=== PATIENT | female | born 1995 | race African-American/Black ===

== ENCOUNTER 2017-03-10 18:03 | Emergency (ER) | payer OTHER ==
[~2017-03-10] VITALS: Ht 154.9 cm; Wt 49.0 kg
[2017-03-10 18:18] VITALS: BP_SYST 114; BP_DIAS 61; BP_DIAS 72; PULSE 84; PULSE 97; RESP 14; RESP 18; TEMP 98.1; TEMP 99; O2SAT 100
--- NOTE | 2017-03-10 18:23 | PD ---
Physical Exam Date Seen by Provider: March 10, 2017 Time Seen by Provider: 18:22 Narrative 22 yo female here for SOB. history of asthma. Has not used inhalers for this. Some chest pressure. Cough. No fevers, chills or sweats. No urine, BM issues. Vitals sign stable. Patient awaiting bed placement. Data Data Last Documented VS Vital Signs Date Time Temp Pulse Resp B/P Pulse Ox O2 Delivery O2 Flow Rate FiO2 03/10/17 18:18 98.1 84 14 114/61 100 MDM Medical Record Reviewed: Yes Supervised Visit with CHAPO: Mani Hidalgo March 10, 2017 18:23
[2017-03-10] MEDS ORDERED: SODIUM CHLOR 0.9% 1000 ML INJ 1,000 ML IV SCH (18:34)
--- NOTE | 2017-03-10 18:38 | PD ---
HPI Chief Complaint: Respiratory Symptoms Time Seen by Provider: 18:36 Travel History International Travel<30 days: No Contact w/Intl Traveler<30days: No Traveled to known affect area: No History of Present Illness HPI 22-year-old female presents to the emergency department for evaluation of lower abdominal pain and shortness of breath intermittently for 2 weeks. Patient states that her lower abdominal pain is a cramping pain. Denies any aggravating or alleviating factors. Denies any chest pain. Denies any aggravating or relieving factors of her shortness of breath. States she has had nausea with several episodes of nonbloody nonbilious emesis over the last week. States that she feels dehydrated. Denies any lightheadedness, dizziness , diarrhea, constipation, dysuria, hematuria, vaginal discharge, cough or cold symptoms. Denies any recent travel or sick contacts. Denies any prior abdominal surgeries. Unsure of her last menstrual cycle, states she thinks it was 2 months ago. Patient is sexually active. No other complaints. PFSH Past Medical History Respiratory: Yes (ASTHMA) ?: Unknown Social History Alcohol Use: No Tobacco Use: No Substance Use: No Allergies-Medications (Allergen,Severity, Reaction): Coded Allergies: No Known Allergies (Unverified , 03/10/17) Reported Meds & Prescriptions Reported Meds & Active Scripts Active Zofran (Ondansetron HCl) 4 Mg Tab 4 Mg PO Q6HR PRN Review of Systems Except as stated in HPI: all other systems reviewed are Neg Physical Exam Narrative GENERAL: Well-nourished and well-developed pleasant patient in no acute distress who is nontoxic appearing. SKIN: Warm and dry. HEAD: Normocephalic and atraumatic. EYES: No injection, drainage, or hyphema noted. PERRLA. EOMI. ENT: No nasal drainage noted. Oropharynx is clear. NECK: Supple and the trachea is midline. CARDIOVASCULAR: Regular rate and rhythm. RESPIRATORY: Breath sounds are equal bilaterally with no accessory muscle use, wheezing, rhonchi, or crackles. GASTROINTESTINAL: Mild suprapubic tenderness to palpation. Abdomen is soft and nondistended. No rebound tenderness or guarding. GENITOURINARY: Normal external genitalia without lesions or erythema. Vaginal vault with with thick yellow discharge. Cervical os closed. No cervical motion tenderness. Uterus nontender and nonenlarged. Bilateral adnexa nontender without masses. MUSCULOSKELETAL: No obvious deformities, swelling, cyanosis, or ecchymosis is present throughout the upper and lower extremities. Patient has full range of motion without any signs of neurovascular compromise. NEUROLOGICAL: Awake, alert, and oriented. Normal speech and gait. Cranial nerves are grossly intact. Data Data Last Documented VS Vital Signs Date Time Temp Pulse Resp B/P Pulse Ox O2 Delivery O2 Flow Rate FiO2 03/10/17 18:31 16 100 Room Air 03/10/17 18:18 98.1 84 114/61 Orders Complete Blood Count With Diff (03/10/17 18:34) Comprehensive Metabolic Panel (03/10/17 18:34) Gc And Chlamydia Pcr (03/10/17 18:34) Wet Prep Profile (03/10/17 18:34) Urinalysis - C+S If Indicated (03/10/17 18:34) Iv Access Insert/Monitor (03/10/17 18:34) Sodium Chloride 0.9% Flush (Ns Flush) (03/10/17 18:45) Ed Urine Pregnancytest Poc (03/10/17 18:34) Lipase (03/10/17 18:34) Sodium Chlor 0.9% 1000 Ml Inj (Ns 1000 M (03/10/17 18:34) Ondansetron Inj (Zofran Inj) (03/10/17 18:45) Ceftriaxone Inj (Rocephin Inj) (03/10/17 18:45) Azithromycin (Zithromax) (03/10/17 18:45) Bhcg Screen Qualitative (03/10/17 18:47) Potassium Chloride Eff (K-Lyte Cl Eff) (03/10/17 19:45) Us Pelvis (Ques Preg/Ectopic) (03/10/17 ) Labs Laboratory Tests Test 03/10/17 18:47 White Blood Count 10.3 TH/MM3 Red Blood Count 3.88 MIL/MM3 Hemoglobin 11.7 GM/DL Hematocrit 35.7 % Mean Corpuscular Volume 92.1 FL Mean Corpuscular Hemoglobin 30.1 PG Mean Corpuscular Hemoglobin 32.6 % Concent Red Cell Distribution Width 14.3 % Platelet Count 123 TH/MM3 Mean Platelet Volume 10.8 FL Neutrophils (%) (Auto) 54.8 % Lymphocytes (%) (Auto) 35.2 % Monocytes (%) (Auto) 8.3 % Eosinophils (%) (Auto) 1.3 % Basophils (%) (Auto) 0.4 % Neutrophils # (Auto) 5.6 TH/MM3 Lymphocytes # (Auto) 3.6 TH/MM3 Monocytes # (Auto) 0.9 TH/MM3 Eosinophils # (Auto) 0.1 TH/MM3 Basophils # (Auto) 0.0 TH/MM3 CBC Comment DIFF FINAL Differential Comment Urine Color YELLOW Urine Turbidity CLOUDY Urine pH 7.5 Urine Specific [place] 1.020 Urine Protein TRACE mg/dL Urine Glucose (UA) TRACE mg/dL Urine Ketones NEG mg/dL Urine Occult Blood NEG Urine Nitrite NEG Urine Bilirubin NEG Urine Urobilinogen 2.0 MG/DL Urine Leukocyte Esterase TRACE Urine RBC 1 /hpf Urine WBC 1 /hpf Urine Squamous Epithelial 1 /hpf Cells Urine Amorphous Sediment RARE Urine Mucus MANY /lpf Microscopic Urinalysis Comment CULT NOT INDICATED Clue Cells (Wet Prep) NONE SEEN Vaginal Trichomonas (Wet Prep) NONE SEEN Vaginal Yeast (Wet Prep) NONE SEEN Sodium Level 139 MEQ/L Potassium Level 3.2 MEQ/L Chloride Level 104 MEQ/L Carbon Dioxide Level 25.2 MEQ/L Anion Gap 10 MEQ/L Blood Urea Nitrogen 5 MG/DL Creatinine 0.55 MG/DL Estimat Glomerular Filtration 171 ML/MIN Rate Random Glucose 86 MG/DL Calcium Level 8.9 MG/DL Total Bilirubin 0.2 MG/DL Aspartate Amino Transf 20 U/L (AST/SGOT) Alanine Aminotransferase 24 U/L (ALT/SGPT) Alkaline Phosphatase 92 U/L Total Protein 7.4 GM/DL Albumin 2.7 GM/DL Lipase 208 U/L Beta HCG, Qualitative [id number] MIU/ML [facility] Medical Decision Making Medical Screen Exam Complete: Yes Emergency Medical Condition: Yes Differential Diagnosis STI versus PID versus UTI versus dehydration versus other Narrative Course 22-year-old female presents to the emergency department for evaluation of lower abdominal pain for 2 weeks. Patient is afebrile, vital signs are stable. She has some tenderness to palpation over the suprapubic region but overall abdominal examination is benign. On pelvic examination shows thick yellow discharge noted in the vaginal vault and from the cervix. She does not have any cervical motion tenderness. I do suspect that she has either gonorrhea or Chlamydia. Therefore she'll be treated with Rocephin and Zithromax empirically here in the ED. ED urine test is positive. CBC is unremarkable. CMP shows hypokalemia with potassium of 3.2. Urinalysis shows trace leukocyte esterase, many mucus, otherwise unremarkable. Wet prep is negative. Beta hCG is 152,843. Pelvic ultrasound report verbally given to me by [employer] service technician states that the patient has a healthy intrauterine at 11 weeks and 2 days with heart tones. Discussed all findings with the patient. She'll be discharged with Zofran for nausea. She is given resources to follow-up with an belly dump driver as an outpatient. Patient verbalizes understanding and agreement with treatment plan. Diagnosis Primary Impression: Intrauterine Additional Impression: Vaginal discharge during Qualified Code: O26.891 - Vaginal discharge during , first trimester Referrals: [facility] Builder Winder Primary Care Physician Patient Instructions: General Instructions Additional Instructions: Take medication as prescribed for nausea and vomiting. Follow-up with an OBGYN. Return to the ED for any acute worsening of symptoms. Med/Other Pt SpecificInfo: Prescription(s) given Scripts Ondansetron (Zofran)4 Mg Tab4 Mg PO Q6HR PRN (NAUSEA OR VOMITING) #15 TAB Ref 0 Prov:Nancy Edwards MD 03/10/17 Disposition: 01 DISCHARGE HOME Condition: Stable Tamera Falk March 10, 2017 18:38
[2017-03-10] MEDS ORDERED: cefTRIAXone INJ 1,000 MG in SODIUM CHLORIDE 0.9% INJ 100 ML IV ONE (18:45)
[2017-03-10] MEDS ORDERED: ONDANSETRON HCL 4 MG/2 ML VIAL IVP ONE (18:45)
[2017-03-10] MEDS ORDERED: SODIUM CHLORIDE 0.9% FLUSH 10 ML FLUSH IVF PRN (18:45)
[2017-03-10] MEDS ORDERED: AZITHROMYCIN 250 MG TAB PO ONE (18:45)
[2017-03-10 19:07] LABS: AUTOMATED NEUTROPHIL # 5.6 TH/MM3 (1.8-7.7); BASOPHIL % 0.4 % (0.0-2.0); EOSINOPHIL # 0.1 TH/MM3 (0-0.4); EOSINOPHIL % 1.3 % (0.0-4.0); HEMATOCRIT 35.7 % (35.0-46.0); HEMO FLAGS DIFF FINAL; LYMPH % 35.2 % (9.0-44.0); LYMPHOCYTE # 3.6 TH/MM3 (1.0-4.8); MEAN CELL VOLUME 92.1 FL (80.0-100.0); MEAN CORPUSCULAR HEMOGLOBIN 30.1 PG (27.0-34.0); MEAN CORPUSCULAR HGB CONC 32.6 % (32.0-36.0); MONO % 8.3 % (0.0-8.0); NEUT % 54.8 % (16.0-70.0); PLATELET COUNT 123 TH/MM3 (150-450); RED BLOOD COUNT 3.88 MIL/MM3 (4.00-5.30); RED CELL DISTRIBUTION WIDTH 14.3 % (11.6-17.2); WHITE BLOOD COUNT 10.3 TH/MM3 (4.0-11.0)
[2017-03-10 19:11] LABS: BLOOD, URINE NEG (NEG); COMMENT (UR) CULT NOT INDICATED; CULTURE IF INDICATED CULT NOT INDICATED; GLUCOSE,URINE TRACE mg/dL (NEG); KETONE, URINE NEG (NEG); MUCUS URINE MANY /lpf (OCC); NITRITE,URINE NEG (NEG); PH, URINE 7.5 (5.0-8.5); SQUAMOUS EPITHELIAL CELL URINE 1 /hpf (0-5); URINE COLOR YELLOW (YELLW/STRAW)
[2017-03-10 19:26] LABS: ANION GAP 10 MEQ/L (5-15); AST (GOT) 20 U/L (16-38); BICARBONATE 25.2 MEQ/L (21.0-32.0); BLOOD UREA NITROGEN 5 MG/DL (7-18); CHLORIDE 104 MEQ/L (98-107); GLOMERULAR FILTRATION RATE 171 ML/MIN (>89); POTASSIUM 3.2 MEQ/L (3.5-5.1); SODIUM (NA) 139 MEQ/L (136-145)
[2017-03-10 19:27] LABS: ALT (GPT) 24 U/L (9-42)
[2017-03-10 19:44] LABS: ALKALINE PHOSPHATASE 92 U/L (45-117); BHCG SCREEN QUALITATIVE 152843 MIU/ML (0-5); TOTAL BILIRUBIN ADULT 0.2 MG/DL (0.2-1.0)
[2017-03-10] MEDS ORDERED: POTASSIUM CHLORIDE 25 MEQ EFFERVESCENT TAB PO ONE (19:45)
[2017-03-10] MEDS ORDERED: ZOFR4TAB PO (21:51)
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
[2017-03-11 00:01] LABS: CHLAMYDIA PCR NOT DETECTED (NOT DETECT); NEISSERIA PCR NOT DETECTED (NOT DETECT)
== END 2017-03-10 22:06 | disposition home or self-care (01) ==
LOC: NEPD 18:03
DX: O26.891 Other specified pregnancy related conditions, first trimester (principal); N89.8 Other specified noninflammatory disorders of vagina; E87.6 Hypokalemia; R06.02 Shortness of breath; R11.2 Nausea with vomiting, unspecified; Z87.09 Personal history of other diseases of the respiratory system; Z3A.11 11 weeks gestation of pregnancy
CPT/HCPCS: 76700; 80053; 81001; 83690; 84703; 85025; 87210; 87491; 87591; 96365; 96375; 99285; J0696; J2405; J7030

== ENCOUNTER 2017-07-20 16:32 | Emergency (ER) | payer MEDICAID ==
[~2017-07-20] VITALS: Ht 154.9 cm; Wt 50.0 kg
[~2017-07-20 16:32] MED LIST: ZOFR4TAB PO
[2017-07-20 16:33] VITALS: BP 122/84; PULSE 88; RESP 14; TEMP 98.8; O2SAT 100
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
[2017-07-20] MEDS ORDERED: SODIUM CHLOR 0.9% 1000 ML INJ 1,000 ML IV ONE (19:30)
[2017-07-20] MEDS ORDERED: KETOROLAC TROMETHAMINE 30 MG/ML (IVP) VIAL IV PUSH ONE (20:00)
[2017-07-20 20:26] LABS: AUTOMATED NEUTROPHIL # 2.7 TH/MM3 (1.8-7.7); BASOPHIL # 0.1 TH/MM3 (0-0.2); BASOPHIL % 0.8 % (0.0-2.0); EOSINOPHIL # 0.2 TH/MM3 (0-0.4); EOSINOPHIL % 2.7 % (0.0-4.0); HEMATOCRIT 37.4 % (35.0-46.0); HEMO FLAGS DIFF FINAL; LYMPH % 52.3 % (9.0-44.0); LYMPHOCYTE # 3.7 TH/MM3 (1.0-4.8); MEAN CELL VOLUME 96.8 FL (80.0-100.0); MEAN CORPUSCULAR HEMOGLOBIN 31.7 PG (27.0-34.0); MEAN CORPUSCULAR HGB CONC 32.8 % (32.0-36.0); MONO % 5.9 % (0.0-8.0); NEUT % 38.3 % (16.0-70.0); PLATELET COUNT 120 TH/MM3 (150-450); RED BLOOD COUNT 3.86 MIL/MM3 (4.00-5.30); RED CELL DISTRIBUTION WIDTH 13.3 % (11.6-17.2); WHITE BLOOD COUNT 7.1 TH/MM3 (4.0-11.0)
[2017-07-20 20:34] LABS: ANION GAP 10 MEQ/L (5-15); AST (GOT) 18 U/L (16-38); BICARBONATE 23.5 MEQ/L (21.0-32.0); BLOOD UREA NITROGEN 9 MG/DL (7-18); CHLORIDE 106 MEQ/L (98-107); GLOMERULAR FILTRATION RATE 136 ML/MIN (>89); POTASSIUM 3.4 MEQ/L (3.5-5.1); SODIUM (NA) 139 MEQ/L (136-145)
[2017-07-20 20:35] LABS: ALT (GPT) 19 U/L (9-42)
[2017-07-20 20:44] LABS: ALKALINE PHOSPHATASE 93 U/L (45-117); TOTAL BILIRUBIN ADULT 0.3 MG/DL (0.2-1.0)
[2017-07-20] MEDS ORDERED: PROV10TA PO (21:39)
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
[2017-07-20 22:20] VITALS: BP 108/68; PULSE 88; RESP 18; TEMP 98.1; O2SAT 100
[2017-07-20 22:21] VITALS: BP 108/68; PULSE 88; RESP 18; O2SAT 100
[2017-07-20 23:51] LABS: CHLAMYDIA PCR NOT DETECTED (NOT DETECT); NEISSERIA PCR NOT DETECTED (NOT DETECT)
== END 2017-07-20 22:52 | disposition home or self-care (01) ==
LOC: NEPE 16:32
DX: N93.8 Other specified abnormal uterine and vaginal bleeding (principal); D69.6 Thrombocytopenia, unspecified; Z87.09 Personal history of other diseases of the respiratory system
CPT/HCPCS: 76856; 80053; 83690; 84443; 84703; 85025; 87210; 87491; 87591; 96374; 99285; J1885; J7030

== ENCOUNTER 2018-08-20 18:28 | Inpatient (IN) ==
--- NOTE | 2018-08-20 19:06 | ED ---
History of Present Illness Primary Care Physician: NOT REQUIRED History of Present Illness: 23-year-old 2 para 0 at 35+ weeks gestation with an EDC of September 22 who presented with suspected ruptured membranes. She denies significant contractions. She reports good movement. She denies bleeding. Obstetrical history: 1 prior SAB, she is under the care of a doctor at [facility]. She is HIV positive and as recently as yesterday was told she had undetectable viral titers. She is on Triumeq. Review of Systems All other systems reviewed negative except as stated in HPI PMFSH - Medical History Medical History: Medical History (Last Updated 08/20/18 @ 19:01 by Jose Bailey MD) Asthma - Surgical History Surgical History: Surgical History (Last Updated 08/13/18 @ 19:58 by Mathew Singh MD) History of intestinal surgery - Social History I have reviewed the patient's Social History: Yes - Tobacco History Second Hand Smoke Exposure: No Tobacco Use In Past 30 Days: No Smoking Status: Never smoker - Alcohol History How Often Do You Have a Drink Containing Alcohol: Never - Substance Use History Substance History: No History of Abuse - Travel History History of Recent Travel: No Medications and Allergies Allergies Allergy/AdvReac Type Severity Reaction Status Date / Time No Known Allergies Allergy Uncoded 03/10/17 18:23 Home Medications Medication Instructions Recorded Confirmed Type Iron (ferrous sulfate) See Label Instructions .ROUTE 08/13/18 08/13/18 History .COMPLEX Vitamin 1 tab PO DAILY 08/13/18 08/13/18 History [id number] See Label Instructions .ROUTE 08/13/18 08/13/18 History [Triumeq] .COMPLEX Exam Vital signs: Vital Signs 08/20/18 18:48 Temperature 98.6 F Pulse Rate 117 H Respiratory Rate 20 Blood Pressure 132/88 Narrative: GENERAL: Well-nourished, well-developed patient. SKIN: Warm and dry. HEAD: Normocephalic and atraumatic. EYES: No scleral icterus. No injection or drainage. ENT: No nasal drainage noted. Mucous membranes pink. Airway patent. NECK: Supple, trachea midline. No JVD. CARDIOVASCULAR: Regular rate and rhythm without murmurs, gallops, or rubs. RESPIRATORY: Breath sounds equal bilaterally. No accessory muscle use. ABDOMEN/GI: Abdomen soft, non-tender, bowel sounds present, no rebound, no guarding Gravid to [-] weeks size Fundal Height: [34-] GENITOURINARY: External Genitalia: intact and normal in appearance BUS glands: [-neg] Cervix: [-] Dilatation: [2-] Effacement: [90-] Station: [0-] Presentation: [vtx-] Membranes: [ruptured] Uterine Contractions: [-Mild irregular] FHT's: Category: [1-] Baseline: [-150] Reactive: [-] Variability: [mod-] Decels: [-no] EXTREMITIES: No cyanosis or edema. BACK: Nontender without obvious deformity. No CVA tenderness. NEUROLOGICAL: Awake and alert. Motor and sensory grossly within normal limits. Five out of 5 muscle strength in all muscle groups. Normal speech. Assessment and Plan - Plan Assessment: 35+ week intrauterine with ruptured membranes, #2 HIV positive with negative viral titers Plan: Admit for labor management. Discharge Plan - Discharge Disposition Patient Disposition: 30 Still Patient - Discharge Condition Condition: Good - Physicians Team ED Provider: Jose Bailey Primary Care Provider: NOT REQUIRED, - Rxs /Orders / Referrals /Forms Prescriptions: No Action [id number] [Triumeq] 600-50-300 mg Tablet See Label Instructions .ROUTE .COMPLEX Iron (ferrous sulfate) tablet See Label Instructions .ROUTE .COMPLEX Vitamin tablet 1 tab PO DAILY - Discharge Instructions Print Language: Khmer
[2018-08-20] MEDS ORDERED: fentaNYL Citrate Inj 100 MCG/2 ML Ampul IV.PUSH PRN ×2 (19:08)
[2018-08-20] MEDS ORDERED: Oxytocin 30 Units/500ml Premix 30 UNITS/500 ML BAG IV.SIG ONE (19:08)
[2018-08-20] MEDS ORDERED: Sodium Chlor 0.9% Inj 500 ML IV.SIG PRN (19:08)
[2018-08-20] MEDS ORDERED: Sod Chloride 0.9% Inj 1,000 ML IV.CONT PRN (19:08)
[2018-08-20] MEDS ORDERED: Naloxone Inj 0.4 MG/ML Vial IV.PUSH PRN (19:08)
[2018-08-20] MEDS ORDERED: Citric Acid/Sodium Citrate Liq 30 ML UDC PO SCH (19:15)
[2018-08-20] MEDS ORDERED: ABACAVIR DOLUTEGRAVIR LAMIVUD SCH (19:15)
--- NOTE | 2018-08-20 19:28 | P.HPOB ---
*LIVE* [facility] OB - ED Note Patient Name: Justin Mckeon Date of : 89 Patient Status: Inpatient Attending Provider: Jose Bailey Date: 08/20/18 18:57 Initialization Date: 08/20/18 18:57 History of Present Illness Primary Care Physician: NOT REQUIRED History of Present Illness: 23-year-old 2 para 0 at 35+ weeks gestation with an EDC of September 22 who presented with suspected ruptured membranes. She denies significant contractions. She reports good movement. She denies bleeding. Obstetrical history: 1 prior SAB, she is under the care of a doctor at [facility]. She is HIV positive and as recently as yesterday was told she had undetectable viral titers. She is on Triumeq. Review of Systems All other systems reviewed negative except as stated in HPI PMFSH - Medical History Medical History: Medical History (Last Updated 08/20/18 @ 19:01 by Jose Bailey MD) Asthma - Surgical History Surgical History: Surgical History (Last Updated 08/13/18 @ 19:58 by Mathew Singh MD) History of intestinal surgery - Social History I have reviewed the patient's Social History: Yes - Tobacco History Second Hand Smoke Exposure: No Tobacco Use In Past 30 Days: No Smoking Status: Never smoker - Alcohol History How Often Do You Have a Drink Containing Alcohol: Never - Substance Use History Substance History: No History of Abuse - Travel History History of Recent Travel: No Medications and Allergies Allergies Allergy/AdvReac Type Severity Reaction Status Date / Time No Known Allergies Allergy Uncoded 03/10/17 18:23 Home Medications Medication Instructions Recorded Confirmed Type Iron (ferrous sulfate) See Label Instructions .ROUTE 08/13/18 08/13/18 History .COMPLEX Vitamin 1 tab PO DAILY 08/13/18 08/13/18 History [id number] See Label Instructions .ROUTE 08/13/18 08/13/18 History [Triumeq] .COMPLEX Exam Vital signs: Vital Signs 08/20/18 18:48 Temperature 98.6 F Pulse Rate 117 H Respiratory Rate 20 Blood Pressure 132/88 Narrative: GENERAL: Well-nourished, well-developed patient. SKIN: Warm and dry. HEAD: Normocephalic and atraumatic. EYES: No scleral icterus. No injection or drainage. ENT: No nasal drainage noted. Mucous membranes pink. Airway patent. NECK: Supple, trachea midline. No JVD. CARDIOVASCULAR: Regular rate and rhythm without murmurs, gallops, or rubs. RESPIRATORY: Breath sounds equal bilaterally. No accessory muscle use. ABDOMEN/GI: Abdomen soft, non-tender, bowel sounds present, no rebound, no guarding Gravid to [-] weeks size Fundal Height: [34-] GENITOURINARY: External Genitalia: intact and normal in appearance BUS glands: [-neg] Cervix: [-] Dilatation: [2-] Effacement: [90-] Station: [0-] Presentation: [vtx-] Membranes: [ruptured] Uterine Contractions: [-Mild irregular] FHT's: Category: [1-] Baseline: [-150] Reactive: [-] Variability: [mod-] Decels: [-no] EXTREMITIES: No cyanosis or edema. BACK: Nontender without obvious deformity. No CVA tenderness. NEUROLOGICAL: Awake and alert. Motor and sensory grossly within normal limits. Five out of 5 muscle strength in all muscle groups. Normal speech. Assessment and Plan - Plan Assessment: 35+ week intrauterine with ruptured membranes, #2 HIV positive with negative viral titers Plan: Admit for labor management. Patient has been compliant with her antiretroviral regimen throughout the and had an undetectable viral load reported yesterday. Therefore we will continue her current medication. GBS PCR. Discharge Plan - Discharge Disposition Patient Disposition: 30 Still Patient - Discharge Condition Condition: Good - Physicians Team ED Provider: Jose Bailey Primary Care Provider: NOT REQUIRED, - Rxs /Orders / Referrals /Forms Prescriptions: No Action [id number] [Triumeq] 600-50-300 mg Tablet See Label Instructions .ROUTE .COMPLEX Iron (ferrous sulfate) tablet See Label Instructions .ROUTE .COMPLEX Vitamin tablet 1 tab PO DAILY - Discharge Instructions Print Language: Kyrgyz
[2018-08-20] MEDS ORDERED: Azithromycin 250 MG Tablet PO ONE (19:52)
[2018-08-20 20:00] LABS: Baso % (Auto) 0.5 % (0.0-2.0); Eos # (Auto) 0.1 th/mm3 (0.0-0.4); Eos % (Auto) 1.8 % (0.0-4.0); Hematocrit 27.5 % (35.0-46.0); Hemoglobin 8.5 gm/dL (11.6-15.3); Lymph # (Auto) 2.2 th/mm3 (1.0-4.8); Lymph % (Auto) 35.2 % (9.0-44.0); Mean Corpuscular Hemoglobin 27.4 pg (27.0-34.0); Mean Corpuscular Volume 88.7 fL (80.0-100.0); Mean Platelet Volume 10.1 fL (7.0-11.0); Mono # (Auto) 0.4 th/mm3 (0.0-0.9); Mono % (Auto) 6.5 % (0.0-8.0); Neut # (Auto) 3.5 th/mm3 (1.8-7.7); Platelet Count 154 th/mm3 (150-450); Red Blood Count 3.11 mil/mm3 (4.00-5.30); Red Cell Distribution Width 25.1 % (11.6-17.2); White Blood Count 6.3 th/mm3 (4.0-11.0)
[2018-08-20 20:26] LABS: Dimorphic RBC Present
[2018-08-20 20:27] LABS: Platelet Morphology Normal (Normal)
[2018-08-20 20:29] LABS: Amphetamine Urine With Conf Neg (Neg); Benzodiazepine Urine With Conf Neg (Neg)
[2018-08-20 21:12] LABS: Bacteria,Urine Few /hpf; Bilirubin,Urine Negative (Negative); Clarity,Urine Hazy (Clear); Color,Urine Yellow (Yellw/Straw); Glucose,Urine (UA) Negative (Negative); Leukocyte Esterase,Urine Trace (Negative); Mucus,Urine Few /lpf (Occasional); Nitrite,Urine Negative (Negative); Specific Gravity,Urine 1.009 (1.002-1.035); Squamous Epithelial Cell,Urine 6 /hpf (0-5)
[2018-08-21] MEDS ORDERED: Oxytocin 30 Units/500ml Premix 30 UNITS/500 ML BAG IV.SIG PRN (05:17)
--- NOTE | 2018-08-21 05:30 | P.OBGPN ---
Labor progress note Patient reports minimal increase in contraction activity. Vital signs stable, afebrile, category 1 heart rate Assessment: 35+ week premature rupture membranes Plan: I discussed the patient with Dr. Shultz from [facility] and he recommends proceeding with active management. Pitocin augmentation has been ordered. GBS is positive.
[2018-08-21] MEDS ORDERED: fentaNYL 2MCG-Bupiv 0.125% Epi 150 ML EPIDURAL ONE (11:33)
[2018-08-21] MEDS ORDERED: Lidocaine PF 1% Inj 5 ML Vial ONE (11:54)
[2018-08-21] MEDS ORDERED: Lidocaaine 1.5%/Epinephrine 1:200,000 PF Inj 5 ML Amp ONE (11:54)
[2018-08-21] MEDS ORDERED: fentaNYL 2MCG-Bupiv 0.125% Epi 150 ML EPIDURAL PRN (12:46)
[2018-08-21] MEDS ORDERED: fentaNYL Citrate Inj 100 MCG/2 ML Ampul EPIDURAL ONE (12:46)
[2018-08-21] MEDS ORDERED: ZIDOVUDINE IV.SIG STA ×2 (15:04)
[2018-08-21] MEDS ORDERED: WATER IV.SIG STA ×2 (15:04)
[2018-08-21] MEDS ORDERED: DEXTROSE 5% IV.SIG STA ×2 (15:04)
--- NOTE | 2018-08-21 15:54 | P.OBGPN ---
Attempt to obtain the patient's recent viral loads unsuccessful. Self reports viral loads of 0 the only records were were able to obtain in May 2018 her CD4 count was greater than 800. I did order a viral load today however results will not be back for several days. Patient made aware to err on the side of caution a loading dose of AZT has been ordered. She is completely dilated with the urge to push, with good control and an epidural in situ, however the benefits of prophylaxis outweigh the complications.
[2018-08-21] MEDS ORDERED: Diphtheria/Tetanus/Pertussis Vaccine Inj 0.5 ML Syringe IM ONE (16:00)
[2018-08-21] MEDS ORDERED: Measles/Mumps/Rubella Vaccine Inj 0.5 ML Vial SQ ONE (16:00)
[2018-08-21] MEDS ORDERED: Lidocaine 1% Inj 50 ML Vial ONE (16:28)
[2018-08-21] MEDS ORDERED: Zolpidem Tartrate 5 MG Tablet PO PRN (17:16)
[2018-08-21] MEDS ORDERED: Bisacodyl 10 MG Supp RECTAL PRN (17:16)
[2018-08-21] MEDS ORDERED: Oxytocin 30 Units/500ml Premix 30 UNITS/500 ML BAG IV.CONT PRN (17:16)
[2018-08-21] MEDS ORDERED: Naloxone Inj 0.4 MG/ML Vial IV.PUSH PRN (17:16)
[2018-08-21] MEDS ORDERED: Acetaminophen 325 MG Tablet PO PRN (17:16)
[2018-08-21] MEDS ORDERED: Benzocaine 20% Top Spray 60 ML Can TOPICAL PRN (17:16)
--- NOTE | 2018-08-21 17:34 | P.OBDELI ---
Weeks Gestation: 35 Anesthesia: Epidural Episiotomy: none Vaginal Delivery: Normal, Spontaneous Presentation: Occiput anterior, Vertex Nuchal Cord: x1 Delayed Cord Clamping (45 sec): Yes Placenta: Spontaneous delivery, Intact Laceration: Vaginal, 2 deg (multiple extensive vaginal tears deep into central sulcus, repaired by attending ) Repair: Chromic interrupted, Chromic running Estimated blood loss (mL): 300 : Female Infant Female A Infant Delivery Date: 08/21/18 Delivery Time: 16:50 score (1 min): 9 score (5 min): 9
[2018-08-21] MEDS: Witch Hazel 50%/Glyderin 12.5% 40 Pad Jar RECTAL PRN (18:15)
[2018-08-22] MEDS: TRIUMEQ PO SCH ×2 (02:26→21:27)
--- NOTE | 2018-08-22 08:53 | P.PNOB ---
Subjective Interval history: Patient is a 23-year-old delivered at 35 weeks and 3 days. Patient is day 1 after . Patient's pain is well-controlled. Patient reports eating and drinking without any nausea or vomiting. Patient reports minimal bleeding. Patient has yet to pass gas or have a bowel movement. Patient is walking without lower extremity pain or shortness of breath. Patient reports desire for contraception arranged with her OB provider Objective Vital Signs/I&O: Vital Signs 08/21/18 09:00 08/21/18 09:30 08/21/18 09:58 Temperature 98.5 F Pulse Rate 80 72 Respiratory Rate 16 Blood Pressure 112/81 107/65 08/21/18 10:01 08/21/18 10:30 08/21/18 11:00 Temperature Pulse Rate 85 92 H 115 H Respiratory Rate Blood Pressure 116/78 111/72 107/74 08/21/18 11:30 08/21/18 12:05 08/21/18 12:10 Temperature Pulse Rate 96 H 122 H 110 H Respiratory Rate Blood Pressure 119/80 138/83 130/81 08/21/18 12:11 08/21/18 12:12 08/21/18 12:25 Temperature 98.2 F Pulse Rate 116 H 104 H Respiratory Rate 18 Blood Pressure 129/83 122/77 08/21/18 12:45 08/21/18 12:53 08/21/18 14:30 Temperature 99.2 F Pulse Rate 86 119 H Respiratory Rate 20 18 Blood Pressure 113/72 115/75 08/21/18 15:00 08/21/18 15:15 08/21/18 15:30 Temperature Pulse Rate 125 H 110 H 117 H Respiratory Rate Blood Pressure 116/78 120/84 119/78 08/21/18 16:00 08/21/18 17:10 08/21/18 17:14 Temperature 98.8 F Pulse Rate 104 H 124 H Respiratory Rate 18 Blood Pressure 119/80 123/82 08/21/18 17:15 08/21/18 17:25 08/21/18 17:55 Temperature Pulse Rate 139 H 118 H 128 H Respiratory Rate 16 18 Blood Pressure 138/83 126/80 129/94 H 08/21/18 18:15 08/21/18 18:30 08/21/18 18:45 Temperature Pulse Rate 120 H 113 H 113 H Respiratory Rate Blood Pressure 114/68 119/81 124/76 08/21/18 19:00 08/21/18 19:55 Temperature 98.5 F Pulse Rate 109 H 96 H Respiratory Rate 18 Blood Pressure 113/68 113/70 Intake & Output 08/21/18 08/22/18 08/22/18 18:59 06:59 18:59 Intake Total 100 / 100 Balance 100 / 100 Intake: IV 100 / 100 Ampicillin Inj 2,000 MG In NS 100 / 100 Inj 100 ML @ 400 mls/hr IV.SIG Q4H [facility] Rx#:[id number] Result Diagrams: 08/20/18 19:33 Objective Remarks: GENERAL: Well-nourished, well-developed patient. CARDIOVASCULAR: Regular rate and rhythm without murmurs, gallops, or rubs. RESPIRATORY: Breath sounds equal bilaterally. No accessory muscle use. ABDOMEN/GI: Abdomen soft, non-tender. Fundus: Firm, non-tender at umbilicus. GENITOURINARY: Light to moderate bleeding. EXTREMITIES: No cyanosis or edema, non-tender, without signs of DVT. Medications and IVs: Active Medications Acetaminophen (Tylenol) 650 mg PO Q4H PRN PRN Reason: PAIN SCALE 1 TO 2 Al Hydroxide/Mg Hydroxide (Milk Of Magnesia Liq) 30 ml PO Q12H PRN PRN Reason: Mild Constipation Benzocaine (Americaine 20% Top [place]) 1 spray TOPICAL Q4H PRN PRN Reason: For Perineum Discomfort Last Admin: 08/21/18 18:15 Dose: 1 spray Bisacodyl (Dulcolax Supp) 10 mg RECTAL DAILY PRN PRN Reason: SEVERE CONSITIPATION Calcium Gluconate (Calcium Gluconate Inj) 1 gm IV.PUSH ONCE PRN PRN Reason: Magnesium toxicity Ephedrine Sulfate (Ephedrine/Ns Syringe) 10 mg IV.PUSH UNSCH PRN PRN Reason: SEE LABEL COMMENTS Stop: 08/22/18 12:46 Ampicillin Sodium 2,000 mg/ (Sodium Chloride) 100 mls @ 400 mls/hr IV.SIG Q4H [facility] Last Admin: 08/21/18 18:01 Dose: Not Given Oxytocin (Pitocin 30 Units/Ns 500 Ml Premix) 30 units in 500 mls @ 2 mls/hr IV.SIG TITRATE PRN; Protocol PRN Reason: For induction of labor Last Admin: 08/21/18 06:34 Dose: 2 milliunit/min, 2 mls/hr Fentanyl/Bupivacaine/Sodium Chlor (Fentanyl 2 Mcg-Bupiv 0.125% Epi) 150 mls @ 10 mls/hr EPIDURAL PRN PRN PRN Reason: for Labor Pain Last Admin: 08/21/18 12:05 Dose: 10 mls/hr Oxytocin (Pitocin 30 Units/Ns 500 Ml Premix) 30 units in 500 mls @ 100 mls/hr IV.CONT UNSCH PRN PRN Reason: Heavy bleeding Last Admin: 08/21/18 17:30 Dose: 100 mls/hr Ibuprofen (Motrin) 800 mg PO Q8H PRN PRN Reason: For Cramping Last Admin: 08/22/18 02:29 Dose: 800 mg Lactulose (Lactulose Liq) 30 ml PO DAILY PRN PRN Reason: SEVERE CONSITIPATION Miscellaneous Information (Misc Information) 1 each OTHER UNSCH PRN PRN Reason: SEE LABEL COMMENTS Stop: 08/22/18 12:46 Miscellaneous Information (Misc Information) 1 each OTHER UNSCH PRN PRN Reason: SEE LABEL COMMENTS Stop: 08/22/18 12:46 Naloxone HCl (Narcan Inj) 0.1 mg IV.PUSH Q2M PRN PRN Reason: for opiate reversal Ondansetron HCl (Zofran Odt) 4 mg PO Q4H PRN PRN Reason: NAUSEA OR VOMITING Ondansetron HCl (Zofran Odt) 4 mg PO Q6H PRN PRN Reason: NAUSEA OR VOMITING Oxycodone/Acetaminophen (Percocet 5/325 Mg) 1 tab PO Q4H PRN PRN Reason: PAIN SCALE 3 TO 5 Oxycodone/Acetaminophen (Percocet 5/325 Mg) 2 tab PO Q4H PRN PRN Reason: PAIN SCALE 6 TO 10 Patient Own Med- Triumeq 600-50-300 Mg Tablet 0 each PO HS [facility] Last Admin: 08/22/18 02:26 Dose: 1 each Senna/Docusate Sodium (Cecile-Colace) 1 tab PO BID [facility] Sennosides (Senokot) 17.2 mg PO Q12H PRN PRN Reason: Moderate Constipation Sodium Chloride (Ns Flush) 2 ml IV.FLUSH BID [facility] Sodium Chloride (Ns Flush) 2 ml IV.FLUSH PRN PRN PRN Reason: FLUSH AFTER USING IV ACCESS Witch Trish/Glycerin (Tucks Pads) 1 applicatio RECTAL QID PRN PRN Reason: HEMORRHOIDS Last Admin: 08/21/18 18:15 Dose: 1 applicatio Zolpidem Tartrate (Ambien) 5 mg PO HS PRN PRN Reason: SLEEP Assessment and Plan - Diagnosis (1) Vaginal delivery Code(s): O80 - Encounter for full-term uncomplicated delivery Status: Acute (2) HIV (human immunodeficiency virus infection) Code(s): B20 - Human immunodeficiency virus [HIV] disease Status: Acute Plan: Known history of HIV Per patient reports her viral load was 01-week ago Ordered a HIV viral load on admission Continuing home HIV meds - Plan Patient is a 23-year-old delivered at 35 weeks and 3 days. Patient is day 1 after . Patient was counseled to do 6 weeks of pelvic rest. Patient was counseled to follow up in 6 weeks. Patient requested follow-up and contraception. --AF VSS --Continue routine care --Motrin and Tylenol when necessary for pain --Encourage OOB --Pelvic rest for 6 weeks will need follow-up appointment at that time. --Contraception: Will arrange with OB provider --Anticipate discharge tomorrow
[2018-08-22] MEDS: Senna/Docusate Sodium 8.6/50 MG Tablet PO SCH ×2 (10:28→21:24)
[2018-08-22 11:15] LABS: Hematocrit 22.3 % (35.0-46.0); Hemoglobin 7.1 gm/dL (11.6-15.3)
[2018-08-22] MEDS: Witch Hazel 50%/Glyderin 12.5% 40 Pad Jar RECTAL PRN (15:46)
[2018-08-22 20:12] VITALS: RESP 18
--- NOTE | 2018-08-23 08:35 | P.PNOB ---
Subjective Post day: 2 Interval history: Patient is a 23-year-old delivered at 35 weeks and 3 days. Patient is day 2 after NVD. Patient's pain is well-controlled. Patient reports minimal bleeding. Patient reports eating and drinking without any nausea or vomiting. Patient has passed gas and has had a bowel movement. Patient denies chest pain and shortness of breath. Patient has been ambulating; she denies lower extremity pain. Patient reports desire for contraception, which she will discuss with her PCP at her first follow-up visit. Patient has decided to formula-feed. Objective Vital Signs/I&O: Vital Signs 08/22/18 10:00 08/22/18 20:11 Temperature 98.4 F 98.1 F Pulse Rate 79 89 Respiratory Rate 20 18 Blood Pressure 112/76 123/76 Result Diagrams: 08/22/18 11:00 Objective Remarks: GENERAL: Well-nourished, well-developed patient. CARDIOVASCULAR: Regular rate and rhythm without murmurs, gallops, or rubs. RESPIRATORY: Breath sounds equal bilaterally. No accessory muscle use. ABDOMEN/GI: Abdomen soft, non-tender. Fundus: Firm, non-tender at umbilicus. GENITOURINARY: Light to moderate bleeding. EXTREMITIES: No cyanosis or edema, non-tender, without signs of DVT. Medications and IVs: Active Medications Acetaminophen (Tylenol) 650 mg PO Q4H PRN PRN Reason: PAIN SCALE 1 TO 2 Last Admin: 08/22/18 19:51 Dose: 650 mg Al Hydroxide/Mg Hydroxide (Milk Of Magnshivani Liq) 30 ml PO Q12H PRN PRN Reason: Mild Constipation Benzocaine (Americaine 20% Top [place]) 1 spray TOPICAL Q4H PRN PRN Reason: For Perineum Discomfort Last Admin: 08/21/18 18:15 Dose: 1 spray Bisacodyl (Dulcolax Supp) 10 mg RECTAL DAILY PRN PRN Reason: SEVERE CONSITIPATION Calcium Gluconate (Calcium Gluconate Inj) 1 gm IV.PUSH ONCE PRN PRN Reason: Magnesium toxicity Ampicillin Sodium 2,000 mg/ (Sodium Chloride) 100 mls @ 400 mls/hr IV.SIG Q4H [facility] Last Admin: 08/21/18 18:01 Dose: Not Given Oxytocin (Pitocin 30 Units/Ns 500 Ml Premix) 30 units in 500 mls @ 2 mls/hr IV.SIG TITRATE PRN; Protocol PRN Reason: For induction of labor Last Admin: 08/21/18 06:34 Dose: 2 milliunit/min, 2 mls/hr Fentanyl/Bupivacaine/Sodium Chlor (Fentanyl 2 Mcg-Bupiv 0.125% Epi) 150 mls @ 10 mls/hr EPIDURAL PRN PRN PRN Reason: for Labor Pain Last Admin: 08/21/18 12:05 Dose: 10 mls/hr Oxytocin (Pitocin 30 Units/Ns 500 Ml Premix) 30 units in 500 mls @ 100 mls/hr IV.CONT UNSCH PRN PRN Reason: Heavy bleeding Last Admin: 08/21/18 17:30 Dose: 100 mls/hr Ibuprofen (Motrin) 800 mg PO Q8H PRN PRN Reason: For Cramping Last Admin: 08/23/18 02:22 Dose: 800 mg Lactulose (Lactulose Liq) 30 ml PO DAILY PRN PRN Reason: SEVERE CONSITIPATION Naloxone HCl (Narcan Inj) 0.1 mg IV.PUSH Q2M PRN PRN Reason: for opiate reversal Ondansetron HCl (Zofran Odt) 4 mg PO Q4H PRN PRN Reason: NAUSEA OR VOMITING Ondansetron HCl (Zofran Odt) 4 mg PO Q6H PRN PRN Reason: NAUSEA OR VOMITING Oxycodone/Acetaminophen (Percocet 5/325 Mg) 1 tab PO Q4H PRN PRN Reason: PAIN SCALE 3 TO 5 Oxycodone/Acetaminophen (Percocet 5/325 Mg) 2 tab PO Q4H PRN PRN Reason: PAIN SCALE 6 TO 10 Patient Own Med- Triumeq 600-50-300 Mg Tablet 0 each PO HS [facility] Last Admin: 08/22/18 21:27 Dose: 1 each Senna/Docusate Sodium (Cecile-Colace) 1 tab PO BID [facility] Last Admin: 08/22/18 21:24 Dose: 1 tab Sennosides (Senokot) 17.2 mg PO Q12H PRN PRN Reason: Moderate Constipation Sodium Chloride (Ns Flush) 2 ml IV.FLUSH BID [facility] Last Admin: 08/22/18 21:34 Dose: Not Given Sodium Chloride (Ns Flush) 2 ml IV.FLUSH PRN PRN PRN Reason: FLUSH AFTER USING IV ACCESS Witch Trish/Glycerin (Tucks Pads) 1 applicatio RECTAL QID PRN PRN Reason: HEMORRHOIDS Last Admin: 08/22/18 15:46 Dose: 1 applicatio Zolpidem Tartrate (Ambien) 5 mg PO HS PRN PRN Reason: SLEEP Assessment and Plan - Diagnosis (1) Vaginal delivery Code(s): O80 - Encounter for full-term uncomplicated delivery Status: Acute (2) HIV (human immunodeficiency virus infection) Code(s): B20 - Human immunodeficiency virus [HIV] disease Status: Acute Plan: Known history of HIV Per patient reports her viral load was 01-week ago Ordered a HIV viral load on admission Continuing home HIV meds - Plan Patient is a 23-year-old delivered at 35 weeks and 3 days. Patient is day 2 after NVD. Continue routine care. Motrin and Percocet when necessary for pain. Encourage OOB. Pelvic rest for 6 weeks will need follow-up appointment at that time. Contraception: To discuss with PCP/OB provider. Anticipate discharge today. [facility] hospitalist - Attending Attestation The exam, history, and the medical decision-making described in the above note were completed with the assistance of the resident physician. I reviewed and agree with the findings presented. I attest that I had a [id number] encounter with the patient on the same day, and personally performed and documented my assessment and findings in the medical record.
[2018-08-23 08:42] VITALS: BP 119/78; PULSE 80
[2018-08-23 08:43] VITALS: TEMP 97.9
[2018-08-23] MEDS: Senna/Docusate Sodium 8.6/50 MG Tablet PO SCH (10:44)
== END 2018-08-23 12:43 | disposition home or self-care (01) ==
LOC: HOBED 18:28 → H2E 19:15 → H1EA 08-21 20:02
PROVIDERS: ADMIT Obstetrics & Gynecology; ATTEND Obstetrics & Gynecology